=== PATIENT | female | born 1965 ===

== ENCOUNTER 2020-08-10 06:00 | Day surgery (SDC) | payer OTHER ==
[~2020-08-10 06:00] MED LIST: ADULT LOW DOSE81 M1 PO; CALAN SR120 MG PO; LOSARTAN POTASS50 MG PO; MOBIC7.5 MG PO; PEPCID AC10 MG PO; SYNTHROID75 MCG PO
[2020-08-10] MEDS ORDERED: PERCOCET 5-3251 EACH PO (09:07)
[2020-08-10] MEDS ORDERED: KETO10TA2 PO (09:07)
[2020-08-10] MEDS ORDERED: NEURONTIN300 MG PO (09:08)
== END 2020-08-10 15:29 | disposition home or self-care (01) ==
LOC: CIR.AMB 06:00
PROVIDERS: ATTEND Surgery
DX: K64.4 Residual hemorrhoidal skin tags (principal); K60.3 Anal fistula; Z20.822 Contact with and (suspected) exposure to COVID-19

== ENCOUNTER 2021-01-16 11:54 | Outpatient (CLI) | payer OTHER ==
[~2021-01-16 11:54] MED LIST changes: +KETO10TA2 PO; +NEURONTIN300 MG PO; +PERCOCET 5-3251 EACH PO
== END 2021-01-16 12:00 | disposition home or self-care (01) ==
LOC: RX STUDY 11:54
PROVIDERS: ATTEND Surgery
DX: K59.09 Other constipation (principal); K64.2 Third degree hemorrhoids; K62.5 Hemorrhage of anus and rectum